=== PATIENT | male | born 1950 | race Caucasian/White ===

== ENCOUNTER 2018-01-14 11:12 | Emergency (ER) | payer MEDICARE, BC ==
[~2018-01-14] VITALS: Ht 175.3 cm; Wt 145.2 kg
[~2018-01-14 11:12] MED LIST: ASPIR 8181 MG PO; BRILINTA90 MG PO; CENTRUM SILVER1 EAC2 PO; DIOVAN 80 MG TA80 M1 PO; IBUPROFEN 800800 M1 PO; KLOR-CON 1010 MEQ PO; LANTUS SUBQ; LASIX 40 MG TAB40 M2 PO; METFORMIN HCL500 MG PO; NEPHROCAPS SOFT1 CAP PO; NEURONTIN 300300 M1 PO; NITROSTAT0.4 MG SUBLING; OMEGA-31000 M1; PLAVIX 75 MG TA75 M1 PO; PRAVACHOL40 MG; TOPROL XL25 MG PO; TRAZODONE HCL100 MG; TYLENOL325 MG PO
[2018-01-14] MEDS ORDERED: ALBUTEROL2.5 MG/31 INH (11:34)
[2018-01-14] MEDS ORDERED: BUMETANIDE2 M1 PO (11:35)
[2018-01-14] MEDS ORDERED: WELLBUTRIN XL150 MG PO (11:36)
[2018-01-14] MEDS ORDERED: ZYRTEC10 M2 PO (11:37)
[2018-01-14] MEDS ORDERED: CARVEDILOL3.125 MG PO (11:37)
[2018-01-14] MEDS ORDERED: SYNTHROID150 MCG PO (11:40)
[2018-01-14] MEDS ORDERED: FOLIC ACID1 MG PO (11:42)
[2018-01-14] MEDS ORDERED: FLONASE 0.05%50 MCG NASAL (11:42)
[2018-01-14 11:43] LABS: ABSOLUTE BASOPHILS 0.1 thou/uL (0.0-0.2); ABSOLUTE EOSINOPHILS 0.1 thou/uL (0.0-0.7); ABSOLUTE LYMPHOCYTES 1.3 thou/uL (0.8-5.3); ABSOLUTE MONOCYTES 0.5 thou/uL (0.0-1.2); ABSOLUTE NEUTROPHILS 5.1 thou/uL (1.6-8.1); BASOPHILS 0.9 %; EOSINOPHILS 1.9 %; HEMATOCRIT 38.6 % (42.0-52.0); HEMOGLOBIN 13.3 gm/dL (14.0-18.0); LYMPHOCYTES 17.9 %; MCH 31.3 pg (26.0-34.0); MCHC 34.6 g/dL (28.0-37.0); MCV 90.6 fL (80.0-100.0); MONOCYTES 6.9 %; MPV 8.4 fl. (7.2-11.1); NUCLEATED RBCS 0 /100WBC; PLATELET COUNT* 139 thou/uL (150-400); POLYS 72.4 %; RBC 4.26 mil/uL (4.50-6.00); RDW-CV 13.7 % (10.5-14.5)
[2018-01-14] MEDS ORDERED: VITAMIN D3400 UNIT PO (11:43)
[2018-01-14] MEDS ORDERED: HUMALOG100 UNIT/2 SUBQ (11:43)
[2018-01-14] MEDS ORDERED: RENA-VITE RX T1 EACH PO (11:43)
[2018-01-14] MEDS ORDERED: METFORMIN HCL500 MG PO (11:44)
[2018-01-14] MEDS ORDERED: XARELTO15 MG PO (11:44)
[2018-01-14] MEDS ORDERED: CENTRUM COMPLE1 EACH PO (11:45)
[2018-01-14] MEDS ORDERED: IBUPROFEN 800800 M1 PO (11:45)
[2018-01-14] MEDS ORDERED: NEPHROCAPS SOFT1 CAP PO (11:45)
[2018-01-14] MEDS ORDERED: LASIX 40 MG TAB40 M2 PO (11:45)
[2018-01-14] MEDS ORDERED: NEURONTIN 300300 M1 PO (11:46)
[2018-01-14] MEDS ORDERED: BRILINTA90 MG PO (11:46)
[2018-01-14] MEDS ORDERED: PRAVACHOL40 MG PO (11:47)
[2018-01-14] MEDS ORDERED: LOPRESSOR50 PO (11:47)
[2018-01-14] MEDS ORDERED: DESYREL300 MG PO (11:47)
[2018-01-14] MEDS ORDERED: LANTUS100 UNIT/M SUBQ (11:48)
[2018-01-14] MEDS ORDERED: AMBIEN 5 MG TABL5 M1 PO (11:48)
[2018-01-14] MEDS ORDERED: DIOVAN 80 MG TA80 M1 PO (11:48)
[2018-01-14 11:53] LABS: ANION GAP 7 mmol/L (7-16); BUN 13 mg/dL (7-18); CHLORIDE 103 mmol/L (98-107); CO2 30 mmol/L (21-32); CREATININE 1.1 mg/dL (0.6-1.3); GLUCOSE 121 mg/dL (70-99); POTASSIUM 4.1 mmol/L (3.5-5.1); SODIUM 140 mmol/L (136-145)
[2018-01-14 11:56] LABS: APTT 28.9 Seconds (25.0-31.3)
[2018-01-14 12:12] LABS: ALBUMIN 3.3 g/dL (3.4-5.0); ALKALINE PHOSPHATASE 80 U/L (46-116); CK-MB MASS 1.4 ng/mL (<0.5-3.6); LIPASE 129 U/L (73-393); NT-PRO BRAIN NAT PEPTIDE 93 pg/mL (<300); SGOT 27 U/L (15-37); SGPT 37 U/L (30-65); TOTAL BILIRUBIN 0.3 mg/dL (<0.1-1.0); TOTAL PROTEIN 7.2 g/dL (6.4-8.2); TROPONIN-I LEVEL <0.06 ng/mL (<0.06)
[2018-01-14 15:22] VITALS: BP 137/68
--- NOTE | 2018-01-14 18:12 | EKG ---
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: klaus : 1950 Requested By: Jasper Courtney Order Number: [id number] MD: Michael Dave Measurements Intervals [place] Rate: 49 P: 20 CO: 174 QRS: 8 QRSD: 98 T: 68 QT: 408 QTc: 369 Interpretive Statements Sinus bradycardia Low voltage, precordial leads Anteroseptal infarct, old Minimal ST depression, anterolateral leads Baseline wander in lead(s) V2 Compared to ECG 07/08/2017 09:24:06 ST (T wave) deviation now present Sinus rhythm no longer present Myocardial infarct finding still present Electronically Signed On 01-14-2018 18:12:25 CDT by Michael Dave [email or web address] <ELECTRONICALLY SIGNED> By: Michael Dave MD, FACC 01/14/18 1812 1119 1119 Michael Dave MD, FACC /EPI
--- NOTE | 2018-01-24 09:04 | CON ---
[address] [address] CONSULTATION Name: BETTINA JACKSON SR Room: [facility]#: [id number] Admission: 01/14/18 Attend Phys: Discharge: 01/14/18 Date of : 50 Report #: [id number] THIS REPORT FOR: //name// CC: Reny Navarro MD [facility] Jasper Courtney TYPE OF REPORT: Cardiology consultation. INDICATION: Chest pain. HISTORY OF PRESENT ILLNESS: The patient is a very pleasant 67-year-old gentleman with history of coronary artery disease. In July of 2017, he had intervention to his mid LAD. He has had previous interventions prior to that. He has preserved left ventricular systolic function. Last night, he had chest discomfort around his back to the left radiating around. The pain started last night, persisted throughout the night and was still present this morning. His troponin and EKG in the Emergency Room are unremarkable. He thinks this pain may be either due to recurrent shingles or musculoskeletal from lifting his 5-month-old grandson. PAST MEDICAL HISTORY: 1. Coronary artery disease. 2. Hypertension. 3. Hyperlipidemia. 4. Obstructive sleep apnea, on CPAP. 5. Osteoarthritis. 6. Peripheral venous insufficiency. 7. History of prostate cancer. 8. Psoriasis. 9. PTSD. 10. Anxiety. 11. Type 2 diabetes mellitus. PAST SURGICAL HISTORY: 1. Cholecystectomy. 2. Percutaneous coronary intervention on multiple occasions. 3. Knee surgery. 4. Shoulder surgery. FAMILY HISTORY: Noncontributory. SOCIAL HISTORY: The patient quit smoking in December of 2016. [place] [address] CONSULTATION Name: BETTINA JACSKON Mars TRISTAN Room: [facility]#: [id number] Admission: 01/14/18 Attend Phys: Discharge: 01/14/18 Date of : 50 Report #: [id number] ALLERGIES: ATORVASTATIN, which causes leg cramps and EFFIENT. CURRENT MEDICATIONS: 1. Furosemide 80 mg daily. 2. Gabapentin 300 mg nightly. 3. Ibuprofen 800 mg q. 6 hours p.r.n. 4. Lantus 100 units nightly. 5. Metformin 500 mg 2 tablets 2 times daily with meals. 6. Toprol-XL 75 mg at bedtime. 7. Multivitamin 1 daily. 8. Fish oil daily. 9. Potassium chloride 10 mEq daily. 10. Pravachol 80 mg daily. 11. Brilinta 90 mg b.i.d. 12. Trazodone 300 mg nightly. 13. Diovan 80 mg daily. 14. Ambien 10 mg nightly. REVIEW OF SYSTEMS: A 14-point review of systems as per HPI, otherwise unremarkable. PHYSICAL EXAMINATION: VITAL SIGNS: Stable. Blood pressure was 136/74, pulse was 50 and regular. GENERAL: This is a pleasant gentleman, moderately obese, in no distress. Mood and affect appropriate. HEENT: The patient is wearing glasses. Extraocular muscles intact. Mucous membranes are moist. NECK: Shows no jugular venous distention. There are no carotid bruits. CHEST: Reveals clear lung alvarado. There are a few raised red bumps over the left back. This does not appear to be obvious shingles, although the patient cautioned to keep an eye on this area. ABDOMEN: Protuberant, soft and nontender. EXTREMITIES: Without edema. SKIN: Warm and dry. RADIOLOGICAL DATA: A 12-lead EKG shows sinus rhythm with no significant ST or T-wave abnormalities. LABORATORY DATA: Initial troponin less than 0.06. IMPRESSION AND RECOMMENDATIONS: 1. Atypical chest pain, question musculoskeletal versus recurrent shingles. I have not given the patient any prescriptions for this. I have asked he and his to keep a close eye on his back in case he does develop any shingles, he is to notify his doctor immediately and started acyclovir immediately. 2. Coronary artery disease, presently stable. Prolong[place] [address] CONSULTATION Name: ALAYNA JACKSONDUYENToby Mars TRISTAN [id number] Admission: 01/14/18 Attend Phys: Discharge: 01/14/18 Date of : 50 Report #: [id number] not represent acute coronary syndrome. Continue medications as outlined above. 3. Hyperlipidemia. Continue atorvastatin at current dose. 4. Hypertension. Blood pressure adequately controlled on current regimen. <ELECTRONICALLY SIGNED> By: Michael Dave MD, FACC 01/24/18 0904 1653 0014Micwill Dave MD, FACC /nt
--- NOTE | 2018-01-24 09:04 | CON ---
[address] [address] CONSULTATION Name: BETTINA JACKSON SR [facility] [id number] Admission: 01/14/18 Attend Phys: Discharge: 01/14/18 Date of : 50 Report #: [id number] THIS REPORT FOR: //name// CC: Reny Courtney INDICATION: Chest pain. HISTORY OF PRESENT ILLNESS: The patient is a very pleasant 67-year-old gentleman with a history of coronary artery disease. In 07/2017, he had percutaneous coronary intervention to his mid LAD. DICTATION ENDS HERE <ELECTRONICALLY SIGNED> By: Michael Dave MD, FACC 01/24/18 0904 1643 2254Micwill Dave MD, FACC /nt
== END 2018-01-14 15:25 | disposition home or self-care (01) ==
LOC: M.ERS 11:12
PROVIDERS: Emergency Medicine
DX: R07.9 Chest pain, unspecified (principal); I10 Essential (primary) hypertension; E11.9 Type 2 diabetes mellitus without complications; I25.10 Atherosclerotic heart disease of native coronary artery without angina pectoris

== ENCOUNTER 2018-09-14 17:05 | Emergency (ER) | payer MEDICARE, BC ==
[~2018-09-14] VITALS: Ht 175.3 cm; Wt 147.4 kg
[~2018-09-14 17:05] MED LIST changes: +ADULT LOW DOSE81 MG PO; +ALBUTEROL2.5 MG/31 INH; +AMBIEN 5 MG TABL5 M1 PO; +ASPIRIN EC81 M1 PO; +B-100 COMPLEX1 EAC1 PO; +BUMETANIDE2 M1 PO; +CARVEDILOL3.125 MG PO; +CENTRUM COMPLE1 EACH PO; +DESYREL300 MG PO; +EFFIENT10 MG PO; +FLONASE 0.05%50 MCG NASAL; +FOLIC ACID1 MG PO; +FUROSEMIDE 40 M40 MG PO; +GABAPENTIN 100100 MG PO; +GLUCOPHAGE XR500 MG PO; +GLUCOPHAGE500 MG PO; +HUMALOG100 UNIT/1 SUBQ; +HUMALOG100 UNIT/2 SUBQ; +LANTUS100 UNIT/M SUBQ; +LOPRESSOR50 PO; +METOPROLOL SUCC25 M1 PO; +MULTI VITAMIN1 EACH PO; +PRAVACHOL40 MG PO; +PRAVACHOL80 MG PO; +RENA-VITE RX T1 EACH PO; +SYNTHROID150 MCG PO; +TRAZODONE 150150 M1 PO; +Trazodone PO; +VITAMIN D3400 UNIT PO; +WELLBUTRIN XL150 MG PO; +XARELTO15 MG PO; +ZYRTEC10 M2 PO
[2018-09-14] MEDS ORDERED: COZAAR 50 MG TA50 MG PO (17:13)
[2018-09-14] MEDS ORDERED: IBUPROFEN 800800 M1 PO (17:27)
[2018-09-14 17:48] LABS: ANION GAP 8 mmol/L (7-16); BUN 13 mg/dL (7-18); CALCIUM 8.8 mg/dL (8.5-10.1); CHLORIDE 99 mmol/L (98-107); CO2 31 mmol/L (21-32); GLUCOSE 150 mg/dL (70-99); POTASSIUM 3.6 mmol/L (3.5-5.1); SODIUM 138 mmol/L (136-145)
[2018-09-14 17:52] LABS: PROTIME 10.3 Seconds (9.20-11.50)
[2018-09-14 17:58] LABS: ABSOLUTE BASOPHILS 0.1 thou/uL (0.0-0.2); ABSOLUTE EOSINOPHILS 0.2 thou/uL (0.0-0.7); ABSOLUTE LYMPHOCYTES 1.6 thou/uL (0.8-5.3); ABSOLUTE MONOCYTES 0.7 thou/uL (0.0-1.2); ABSOLUTE NEUTROPHILS 4.4 thou/uL (1.6-8.1); BASOPHILS 0.7 %; EOSINOPHILS 2.2 %; HEMATOCRIT 40.9 % (42.0-52.0); HEMOGLOBIN 13.7 gm/dL (14.0-18.0); LYMPHOCYTES 23.2 %; MCH 29.8 pg (26.0-34.0); MCHC 33.4 g/dL (28.0-37.0); MCV 89.4 fL (80.0-100.0); MONOCYTES 9.6 %; MPV 8.2 fl. (7.2-11.1); NUCLEATED RBCS 0 /100WBC; PLATELET COUNT* 172 thou/uL (150-400); POLYS 64.3 %; RBC 4.58 mil/uL (4.50-6.00); RDW-CV 14.9 % (10.5-14.5); WBC 6.8 thou/uL (4.0-11.0)
[2018-09-14 17:59] LABS: ALBUMIN 3.3 g/dL (3.4-5.0); ALKALINE PHOSPHATASE 84 U/L (46-116); NT-PRO BRAIN NAT PEPTIDE 83 pg/mL (<300); SGOT 27 U/L (15-37); SGPT 35 U/L (30-65); TOTAL BILIRUBIN 0.2 mg/dL (<0.1-1.0); TOTAL PROTEIN 7.3 g/dL (6.4-8.2); TROPONIN-I LEVEL <0.06 ng/mL (<0.06)
[2018-09-14 20:35] VITALS: BP 136/64
--- NOTE | 2018-09-15 17:25 | EKG ---
[place] [address] ELECTROCARDIOGRAM REPORT Name: BETTINA JACKSON SR Room: [facility]#: [id number] Admission: 09/14/18 Attend Phys: Discharge: 09/14/18 Date of : 50 Report #: [id number] THIS REPORT FOR: //name// 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[place] [facility] [place] 1950 Requested By: Nikki Eddy Order Number: [id number] MD: Michael Dave Measurements Intervals [place] Rate: 66 P: 56 AL: 166 QRS: 7 QRSD: 96 T: 111 QT: 399 QTc: 418 Interpretive Statements Sinus rhythm Anteroseptal infarct, old Borderline repolarization abnormality Compared to ECG 01/14/2018 11:19:45 Sinus bradycardia no longer present ST (T wave) deviation no longer present Myocardial infarct finding still present Electronically Signed On 09-15-2018 17:25:22 AVIATION TECHNICIAN by Michael Dave [email or web address] <ELECTRONICALLY SIGNED> By: Michael Dave MD, FACC 09/15/18 1725 1710 1710 Michael Dave MD, FAC /EPI
== END 2018-09-14 20:37 | disposition home or self-care (01) ==
LOC: M.ERS 17:05
PROVIDERS: Nurse Practitioner
DX: R07.9 Chest pain, unspecified (principal)

== ENCOUNTER 2018-10-20 08:11 | Observation (INO) | payer MEDICARE, BC ==
[~2018-10-20] VITALS: Ht 175.3 cm; Wt 147.4 kg
[2018-10-20] VITALS (10 sets, daily range): BP systolic 114–157; BP diastolic 61–88
[~2018-10-20 08:11] MED LIST changes: +COZAAR 25 MG TA25 M1 PO; +COZAAR 50 MG TA50 MG PO; +FISH OIL 1,001000 M2 PO; +IMDUR 30 MG TAB30 M1 PO; +PLAVIX 75 MG TA75 MG PO
[2018-10-20 08:55] LABS: HEMATOCRIT 39.9 % (42.0-52.0); HEMOGLOBIN 13.6 gm/dL (14.0-18.0); MCHC 34.1 g/dL (28.0-37.0); MCV 90.9 fL (80.0-100.0); MPV 8.8 fl. (7.2-11.1); RBC 4.38 mil/uL (4.50-6.00); RDW-CV 14.6 % (10.5-14.5); WBC 5.7 thou/uL (4.0-11.0)
[2018-10-20 09:00] LABS: PROTIME 10.1 Seconds (9.20-11.50)
[2018-10-20 09:02] LABS: ANION GAP 8 mmol/L (7-16); BUN 12 mg/dL (7-18); CALCIUM 8.8 mg/dL (8.5-10.1); CHLORIDE 102 mmol/L (98-107); CO2 30 mmol/L (21-32); CREATININE 1.1 mg/dL (0.6-1.3); GLUCOSE 86 mg/dL (70-99); POTASSIUM 3.9 mmol/L (3.5-5.1); SODIUM 140 mmol/L (136-145)
[2018-10-20 09:06] LABS: ALBUMIN 3.5 g/dL (3.4-5.0); ALKALINE PHOSPHATASE 72 U/L (46-116); CHOLESTEROL 144 mg/dL (<200); HDL CHOLESTEROL 38 mg/dL (>40); LDL CHOLESTEROL 69 mg/dL (<100); SGOT 25 U/L (15-37); SGPT 33 U/L (30-65); TC:HDL 3.8 Ratio (Not establshd); TOTAL BILIRUBIN 0.4 mg/dL (<0.1-1.0); TOTAL PROTEIN 7.5 g/dL (6.4-8.2); TRIGLYCERIDE 186 mg/dL (<150); VLDL 37 mg/dL (<40)
[2018-10-20 09:09] LABS: SERUM ASSESSMENT Clear
[2018-10-21] VITALS: BP 131/59
--- NOTE | 2018-10-21 03:06 | NUR ---
PATIENT RESTED IN BED, NO ACUTE CHANGES. PATIENT DID NOT SHOW SIGNS OF DISTRESS. PATIENT DID NOT COMPLAIN OF CHEST PAIN. CALL LIGHT WITH IN REACH, HOURLY ROUNDING OBSERVED.
[2018-10-21 04:00] VITALS: BP 106/89
[2018-10-21 04:47] LABS: HEMATOCRIT 36.9 % (42.0-52.0); HEMOGLOBIN 12.5 gm/dL (14.0-18.0); MCH 31.2 pg (26.0-34.0); MCV 91.8 fL (80.0-100.0); MPV 8.5 fl. (7.2-11.1); RBC 4.02 mil/uL (4.50-6.00); RDW-CV 14.5 % (10.5-14.5); WBC 4.5 thou/uL (4.0-11.0)
[2018-10-21 05:17] LABS: ALKALINE PHOSPHATASE 62 U/L (46-116); ANION GAP 8 mmol/L (7-16); BUN 10 mg/dL (7-18); CALCIUM 8.1 mg/dL (8.5-10.1); CHLORIDE 105 mmol/L (98-107); CO2 28 mmol/L (21-32); GLUCOSE 89 mg/dL (70-99); POTASSIUM 3.8 mmol/L (3.5-5.1); SGOT 19 U/L (15-37); SGPT 28 U/L (30-65); SODIUM 141 mmol/L (136-145); TOTAL BILIRUBIN 0.4 mg/dL (<0.1-1.0); TOTAL PROTEIN 5.9 g/dL (6.4-8.2); TROPONIN-I LEVEL <0.06 ng/mL (<0.06)
[2018-10-21 08:00] VITALS: BP 136/53
[2018-10-21 10:42] VITALS: BP 156/67
[2018-10-21] MEDS ORDERED: NITROGLYCERIN0.4 MG SUBLING (11:24)
--- NOTE | 2018-10-21 14:50 | EKG ---
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: : 1950 Requested By: Demar Navarro Order Number: [id number] Lina MD: Demar Navarro Measurements Intervals [place] Rate: 72 P: 47 MO: 187 QRS: 4 QRSD: 96 T: 73 QT: 398 QTc: 436 Interpretive Statements Sinus rhythm Anteroseptal infarct, old Minimal ST depression, lateral leads Baseline wander in lead(s) V6 Compared to ECG 09/14/2018 17:10:57 ST (T wave) deviation now present Myocardial infarct finding still present Electronically Signed On 10-21-2018 14:50:41 DAM WORKER by Demar Navarro [email or web address] <ELECTRONICALLY SIGNED> By: Demar Navarro MD, FACC 10/21/18 1450 2 2 Demar Navarro MD, FACC /EPI
--- NOTE | 2018-10-21 14:52 | EKG ---
[place] [address] ELECTROCARDIOGRAM REPORT Name: ALAYNA JACKSONDUYENToby AKERS Room: [address] M.R.#: [id number] Admission: 10/20/18 Attend Phys: Demar Navarro MD, Discharge: 10/21/18 Date of : 50 Report #: [id number] THIS REPORT FOR: //name// [facility] Test Date: 2018-10-20 Test Time: 13:09:40 Pat Name: BETTINA JACKSON Department: Room: [facility] Gender: M Scrap Wheeler: MIKE : 1950 Requested By: Demar Navarro Order Number: [id number] Lina MD: Demar Navarro Measurements Intervals [place] Rate: 64 P: 59 [place]: 186 QRS: 9 QRSD: 96 T: QT: 412 QTc: 425 Interpretive Statements Sinus rhythm Anterior infarct, old Baseline wander in lead(s) V2 Compared to ECG 09/14/2018 17:10:57 No significant changes Electronically Signed On 10-21-2018 14:52:05 CORE CLEANER by Demar Navarro [email or web address] <ELECTRONICALLY SIGNED> By: Demar Navarro MD, FACC 10/21/18 1452 1309 1309 Demar Navarro MD, [facility] /EPI
--- NOTE | 2018-10-21 15:01 | EKG ---
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: : 1950 Requested By: Demar Navarro Order Number: [id number] Lina MD: Demar Navarro Measurements Intervals [place] Rate: 67 P: 58 ID: 183 QRS: 8 QRSD: 97 T: 65 QT: 405 QTc: 428 Interpretive Statements Sinus rhythm Anterior infarct, old Baseline wander in lead(s) V1 Compared to ECG 09/14/2018 17:10:57 No significant changes Electronically Signed On 10-21-2018 15:00:59 SUPERVISORY INVESTIGATIVE SPECIALIST by Demar Navarro [email or web address] <ELECTRONICALLY SIGNED> By: Demar Navarro MD, FACC 10/21/18 1500 0752 0752 Demar Navarro MD, [facility] /EPI
--- NOTE | 2018-10-21 16:15 | D ---
[address] [address] DISCHARGE SUMMARY Name: ORLANDOMAGDALENESHARITA AKERS Room: [address] Louise Ochoa#: [id number] Admission: 10/20/18 Attend Phys: Demar Navarro MD, Discharge: 10/21/18 Date of : 50 Report #: [id number] THIS REPORT FOR: //name// CC: Demar Chambersandowski FINAL DISCHARGE DIAGNOSES: 1. Abnormal nuclear stress test. 2. Coronary artery disease. 3. Recurrent angina. 4. Status post percutaneous coronary intervention with stent deployment. 5. Hypertension. 6. Peripheral vascular disease. 7. Type 2 diabetes. 8. Hyperlipidemia. 9. Exogenous obesity. PROCEDURES: 10/20/2018 -- left heart catheterization, left ventriculography, selective coronary arteriography, and percutaneous coronary intervention with deployment of 3 drug-eluting stents in the distal LAD and one in the mid LAD. HOSPITAL COURSE: The patient is a very pleasant 68-year-old male with a history of complex coronary artery disease, status post multiple prior percutaneous coronary interventions. He has significant risk factors for coronary artery disease including hypertension, diabetes, hyperlipidemia and significant weight excess. Recently, nuclear stress test was abnormal with inducible anteroapical ischemia. In this context, he underwent cardiac catheterization on 10/20/2018, which revealed 80% mid LAD stenosis with tandem 80% and 90% distal LAD stenoses. There was 40% proximal LAD narrowing. Given these findings, I performed percutaneous coronary intervention, deploying 3 small drug-eluting stents in the distal LAD and one in the mid LAD with 0% residual narrowing at the previously noted sites of 80-90% narrowing. There was ALBERTO 3 flow of the distal vessel and he did well post-procedurally. Troponin was 0.06 the following day. Additional labs revealed sodium 141, potassium 3.8, BUN 10, creatinine 1.0. Hemoglobin 12.5, white blood cell count 4500 with 99,000 platelets. He ambulated in the hallways with good hemostasis at the right radial site of catheterization. DISCHARGE MEDICATIONS: He was discharged home on the following medications: Aspirin 81 mg daily, B complex and C vitamins 1 capsule daily, clopidogrel or Plavix 75 mg daily with a 600 mg chucho-procedural dose given, fish oil 1000 [place] [address] DISCHARGE SUMMARY Name: RENETTABETTINA Room: [address] Louise Ochoa#: [id number] Admission: 10/20/18 Attend Phys: Demar Navarro MD, Discharge: 10/21/18 Date of : 50 Report #: [id number], folic acid with multivitamin 1 tablet daily, furosemide 40 mg daily, gabapentin 300 mg b.i.d., Lantus insulin 80 units at bedtime, Humalog insulin 20 units at breakfast, 16 units at lunch and dinner, Imdur 30 mg daily, losartan 75 mg daily, metformin 500 mg b.i.d. to be resumed on 10/22/2018, metoprolol succinate 75 mg at bedtime, pravastatin 80 mg at bedtime, trazodone 400 mg in the evening, zolpidem 5 mg for sleep, ibuprofen 800 mg every 6 hours as needed for arthritic discomfort. He was also given a script for sublingual nitroglycerin to be utilized on a p.r.n. basis. I will plan to see him in 6-8 weeks in our office. Thus, the patient was discharged to home in stable condition on the aforementioned medications with followup as iterated above. <ELECTRONICALLY SIGNED> By: Demar Navarro MD, FACC 10/21/18 1615 0953 1030Joteo Navarro MD, FACC /nt
--- NOTE | 2018-10-21 18:06 | NUR ---
ORDER RECEIVED TO DISHCARGE PATIENT HOMNE TO SELF CARE. MED REC, MEDICATION EDUATION , STROKE EDUCATION AND NEED FOR FOLLOW UP APPOINTMENTS COVERED AND STAED UNDERSTOOD BY PATIENT. IV AND TELEMETRY PACK REOMVED. HOURLY ROUNDING COMPLETED FOR PATIENT SAFETY. DC TIME OF 12:00, PATIENT WAS ESCORTED BY TECH TO AWAITING CAR WITH SPOUSE PRESENT.
--- NOTE | 2018-10-22 11:48 | CARD ---
[address] [address] CARDIAC CATH REPORT Name: ALAYNA JACKSONDUYENToby DELPHINE Room: [address] Don#: [id number] Admission: 10/20/18 Attend Phys: Demar Navarro MD, Discharge: 10/21/18 Date of : 50 Report #: [id number] THIS REPORT FOR: //name// APPROVED REPORT Study performed: 10/20/2018 09:13:47 Patient Details Patient Status: Out-Patient Room #: The patient is a 68 year-old male Event Personnel Demar Navarro Boat Outboard Engine Mechanic, [place] Estes Childers, James Scrub, Hintermaier, Elena RN cost recorder Performed Left Heart Cath w/or w/o Coronaries [facility] Place w/wo Plasty Single LAD Indication Positive stress test Risk Factors Obesity, Hypercholesterolemia, Hypertension, Diabetes Previous Procedures/Diagnoses Previous PCI Admission/Lab Medications/Medications given during procedure Aspirin, Platelet Aff. Inhib., Angiomax bolus and infusion Procedure Narrative The patient was brought electively to the Cardiac Catheterization Laboratory and was prepped and draped in a sterile manner. The right wrist was infiltrated with 2% Lidocaine subcutaneous anesthesia. A Slender Glidesheath sheath was inserted into the right radial artery. Coronary angiography was performed using coronary diagnostic catheters. The right coronary system was accessed and visualized with a Diagnostic 6Fr JR4 catheter. The left coronary system was accessed and visualized with a Diagnostic 6Fr JL3.5 catheter. The left ventricle was accessed and visualized with a Diagnostic 6Fr angled pigtail catheter. Left ventricular/Aortic Valve gradient assessed via catheter pullback. Left ventriculogram was performed in KAPLAN projection. The patient tolerated the procedure well and there were no complications associated with the [place] [address] CARDIAC CATH REPORT Name: ALAYNA JACKSONDUYENToby [facility] Room: [address]#: [id number] Admission: 10/20/18 Attend Phys: Demar Navarro MD, Discharge: 10/21/18 Date of : 50 Report #: [id number] hematoma. Intraoperative Conscious Sedation Sedation start time: 952 Case end Time: 1107 Fentanyl 100 mcg Versed 2 mg Fluoro Time: 18.4 minutes Dose: DAP [id number] cGycm2 143 mGy Contrast Type and Amount: Visipaque 550 ml Coronary Angiography The patient's coronary anatomy is right dominant. Diagnostic Cath Left Main 0% narrowing LAD 40% mid vessel narrowing followed by a 80% mid to distal LAD stenosis and 90% distal LAD stenosis Circumflex 50% first marginal with 40% second marginal narrowings Right Coronary 60% mid vessel narrowing with total distal occlusion Left Ventriculography The left ventricle is normal in size with normal contractility. The left ventricular ejection fraction is estimated to be 65%. Left ventricular wall motion abnormalities are not present. There is no mitral insufficiency. Hemodynamics The aortic pressure is 117/65 mmHg with a mean of 84 mmHg. The left ventricular pressure is 128/9 mmHg with a mean of mmHg. The left ventricular end diastolic pressure is 23 mmHg. There was no gradient across the aortic valve upon pullback. PCI Technique Lesion Percutaneous coronary intervention was performed on the distal left anterior descending artery segment. The lesion stenosis prior to intervention was 90% with ALBERTO 3 flow. A 6Fr XB 3.5 Guide Catheter was used to engage the ostium. A play140 180 Interventional Guidewire was used to cross the lesion. BALLOON DILATION A Balloon catheter NC Trek RX 2.0 X 12 was inserted and inflated up to 15.00atm for 11seconds. Additional Inflation: 12.00atm [place] 12[place]. [place] [address] CARDIAC CATH REPORT Name: ALAYNA JACKSONDUYENToby DELPHINE Room: [address]#: [id number] Admission: 10/20/18 Attend Phys: Demar Navarro MD, Discharge: 10/21/18 Date of : 50 Report #: [id number] STENT DEPLOYMENT A drug-eluting stent Yuriy RX Stent 2.0X15mm was inserted and inflated up to 10.00atm for 9seconds. A drug-eluting stent Yuriy RX stent 2.25X8 was inserted and inflated up to 10:00atm for 7 seconds. A drug-eluting sent [place] 2.25X8 was inserted and inflated up to 12:00atm for 8 seconds. Final angiography reveals 0 % stenosis with ALBERTO 0 flow. PCI Technique Lesion 2 Percutaneous Coronary Intervention was performed on the mid left anterior descending artery segment. The lesion stenosis prior to intervention was 80% with ALBERTO 3 flow. Stent Deployment A drug-eluting stent [place] RX Stent 2.5X22mm was inserted and inflated up to 10.00atm for 8seconds. Additional Inflation: 11.00atm for 10seconds. Post Stent Deployment Balloon Dilation A Balloon catheter NC Trek RX 2.5 X 12 was inserted and inflated up to 15.00atm for 7seconds. Additional Inflation: 12.00atm for 7seconds. Additional Inflation: 12.00atm for 8seconds. Final angiography reveals 0 % stenosis with ALBERTO 3 flow. Conclusion #1 significant coronary artery disease characterized by the following: A 40% mid LAD narrowing followed by 80% mid to distal LAD stenosis and 90% distal LAD stenosis B 40% narrowings of the first and second marginal branch of the nondominant circumflex C dominant right coronary with 60% mid vessel narrowing and 100% distal occlusion #2 normal left ventricular systolic function, estimated ejection fraction being 65% #3 successful percutaneous coronary intervention with deployment drug-eluting stents at the sites of 80% mid and 90% [place] [address] CARDIAC CATH REPORT Name: BETTINA JACKSON SR Room: [address] Louise Ochoa#: [id number] Admission: 10/20/18 Attend Phys: Demar Navarro MD, Discharge: 10/21/18 Date of : 50 Report #: [id number] stenosis with 0% residual narrowing at both sites following stent deployment and ALBERTO-3 flow the distal vessel Recommendations Daily ASA with Plavix for at least one year Cardiac Risk Reduction Program Aggressive Medical Therapy Medications Administered Aspirin (any) Clopidogrel Diagnostic Cath Approved by: Demar Navarro MD Date/Time: 10/22/2018 11:46:43 <ELECTRONICALLY SIGNED> By: Demar Navarro MD, [facility] 10/22/18 1148 1148 1148Demar Navarro MD, FACC /INF
== END 2018-10-21 12:27 | disposition home or self-care (01) ==
LOC: M.CL 08:11 → M.TBA-CV 11:28 → M.2W 14:04
PROVIDERS: ADMIT Internal Medicine
DX: I25.119 Atherosclerotic heart disease of native coronary artery with unspecified angina pectoris (principal); I10 Essential (primary) hypertension; E11.9 Type 2 diabetes mellitus without complications; E78.5 Hyperlipidemia, unspecified; E66.09 Other obesity due to excess calories; I73.9 Peripheral vascular disease, unspecified

== ENCOUNTER 2019-12-20 12:10 | Observation (INO) | payer MEDICARE, BC ==
[~2019-12-20] VITALS: Ht 172.7 cm; Wt 157.4 kg
[2019-12-20] VITALS (12 sets, daily range): BP systolic 104–1126; BP diastolic 56–77
[~2019-12-20 12:10] MED LIST changes: -GLUCOPHAGE XR500 MG PO; -METOPROLOL SUCC25 M1 PO; +NITROGLYCERIN0.4 MG SUBLING; -PRAVACHOL80 MG PO; +TOPROL XL50 MG PO
[2019-12-20 13:35] LABS: PROTIME 10.7 Seconds (9.20-11.50)
[2019-12-20 13:36] LABS: ANION GAP 5 mmol/L (7-16); BUN 14 mg/dL (7-18); CALCIUM 8.7 mg/dL (8.5-10.1); CHLORIDE 101 mmol/L (98-107); CO2 33 mmol/L (21-32); GLUCOSE 157 mg/dL (70-99); POTASSIUM 4.5 mmol/L (3.5-5.1); SODIUM 139 mmol/L (136-145)
[2019-12-20 13:41] LABS: ALBUMIN 3.3 g/dL (3.4-5.0); ALKALINE PHOSPHATASE 80 U/L (46-116); CHOLESTEROL 136 mg/dL (<200); HDL CHOLESTEROL 39 mg/dL (>40); HEMATOCRIT 38.7 % (42.0-52.0); HEMOGLOBIN 13.5 gm/dL (14.0-18.0); LDL CHOLESTEROL 62 mg/dL (<100); MCHC 34.9 g/dL (28.0-37.0); MCV 91.6 fL (80.0-100.0); MPV 8.9 fl. (7.2-11.1); RBC 4.23 mil/uL (4.50-6.00); RDW-CV 13.3 % (10.5-14.5); SGOT 43 U/L (15-37); SGPT 51 U/L (30-65); TC:HDL 3.5 Ratio (Not establshd); TOTAL BILIRUBIN 0.4 mg/dL (<0.1-1.0); TOTAL PROTEIN 7.2 g/dL (6.4-8.2); TRIGLYCERIDE 176 mg/dL (<150); VLDL 35 mg/dL (<40); WBC 7.3 thou/uL (4.0-11.0)
[2019-12-20 13:42] LABS: SERUM ASSESSMENT Clear
--- NOTE | 2019-12-20 18:24 | NUR ---
RECEIEIVIED REPORT FROM AURY RN IN TRACTOR DISTRIBUTOR POST CATH AT 1700-PT REPORTED TO HAVE HAD 2 STENTS PLACED TO LAD VIA ACCESS RIGHT GROIN- PT ARRIVED TO UNIT VIA BED AT 1715- VS- 97.3 18 123/77 68 95% ON RA- RIGHT GROIN SIGHT NOTED TO BE C/D/I WITH CLEAN GAUZE/TRANSPARENT DRESSING IN PLACE WITH NO HEMATOMA- INSTRUCTION GIVEN FOR RLE IMMOBILIZATION- VS PER PROTOCOL IN PLACE WITH GROIN CHESKS, MOST REPORTED TO HAVE BEEN COMPLETED PRIOR TO TRANSFER- PT NOTED TO BE A&O X4- CONT OF BOWEL, LEON IN PLACE D/D CLEAR EDWIN URINE- BED REST IN PLACE INDICATED TILL 10PM- IV NOTED TO LEFT FA INTACT, IVF INFUSSING PRESCIBED- 2+ BLE EDEMA NOTED WITH DISCOLORATION- PT DENIES ANY C/O PAIN/DISCOMFORT AT THIS TIME- REPORTS TO HAVE CARLOS HEARING AIDES, HOWEVER LEFT AT HOME- PT DENIES ANY C/O PAIN/DISCOMFORT AT THIS TIME- AT SIDE- GOOD PO INTAKE NOTED WITH DINNER- CALL LIGHT AND PERSONAL BELONGINGS WITH IN REACH- PT MAKES NEEDS KNOWN- ALL NEEDS MET AT THIS TIME-[facility]
[2019-12-21] VITALS: BP 111/51; BP 142/68
[2019-12-21 04:00] VITALS: BP 121/37
[2019-12-21 04:16] LABS: HEMATOCRIT 36.9 % (42.0-52.0); MCH 32.4 pg (26.0-34.0); MCHC 35.2 g/dL (28.0-37.0); MCV 92.1 fL (80.0-100.0); MPV 8.6 fl. (7.2-11.1); RBC 4.01 mil/uL (4.50-6.00); RDW-CV 13.7 % (10.5-14.5); WBC 5.3 thou/uL (4.0-11.0)
[2019-12-21 04:34] VITALS: BP 114/53
[2019-12-21 04:43] LABS: POTASSIUM 3.7 mmol/L (3.5-5.1); TOTAL BILIRUBIN 0.3 mg/dL (<0.1-1.0); TOTAL PROTEIN 6.6 g/dL (6.4-8.2); TROPONIN-I LEVEL 0.47 ng/mL (<0.06)
[2019-12-21 08:00] VITALS: BP 145/67
--- NOTE | 2019-12-21 11:15 | EKG ---
[place] [address] ELECTROCARDIOGRAM REPORT Name: ALAYNA JACKSONDUYENToby AKERS Room: [address] M.R.#: [id number] Admission: 12/20/19 Attend Phys: Edwin Logan Discharge: Date of : 50 Date of Service: 12/20/19 1323 Report #: [id number] THIS REPORT FOR: //name// [facility] Test Date: 2019-12-20 Test Time: 13:23:34 Pat Name: BETTINA JACKSON Department: Room: [facility] Gender: M Housecleaner: WILL : 1950 Requested By: Demar Navarro Order Number: [id number] MD: Michael Dave Measurements Intervals [place] Rate: 72 P: 53 DE: 191 QRS: 5 QRSD: 90 T: 74 QT: 395 QTc: 433 Interpretive Statements Sinus rhythm Ventricular premature complex Low voltage, precordial leads Anteroseptal infarct, old Compared to ECG 10/21/2018 07:52:55 Ventricular premature complex(es) now present Low QRS voltage now present Myocardial infarct finding still present Electronically Signed On 12-21-2019 11:14:28 RODBUSTER by Michael Dave [email or web address] <ELECTRONICALLY SIGNED> By: Michael Dave MD, FAC 12/21/19 1114 1323 1323 Michael Dave MD, [facility] /EPI
--- NOTE | 2019-12-21 11:17 | EKG ---
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: : 1950 Requested By: Demar Navarro Order Number: [id number] Reading MD: Michael Dave Measurements Intervals [place] Rate: 68 P: 53 MS: 196 QRS: 17 QRSD: 95 T: QT: 406 QTc: 432 Interpretive Statements Sinus rhythm Premature ventricular complex Low voltage, precordial leads Anteroseptal infarct, old Nonspecific T abnormalities, lateral leads Baseline wander in lead(s) II,III,aVF Compared to ECG 10/21/2018 07:52:55 Low QRS voltage now present T-wave abnormality now present Myocardial infarct finding still present Electronically Signed On 12-21-2019 11:16:53 FINANCE EFFECTIVENESS MANAGER by Michael Dave [email or web address] <ELECTRONICALLY SIGNED> By: Michael Dave MD, [facility] 12/21/19 1116 1648 1648 Michael Dave MD, [facility] /EPI
--- NOTE | 2019-12-21 11:22 | EKG ---
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: : 1950 Requested By: Demar Navarro Order Number: [id number] Reading MD: Michael Dave Measurements Intervals [place] Rate: 64 P: 51 [place]: 181 QRS: 14 QRSD: 98 T: 6 QT: 414 QTc: 427 Interpretive Statements Sinus rhythm Low voltage, precordial leads Anteroseptal infarct, old Borderline repolarization abnormality Baseline wander in lead(s) II,III,aVR,aVL,aVF,V4 Compared to ECG 10/21/2018 07:52:55 Low QRS voltage now present Myocardial infarct finding still present review Electronically Signed On 12-21-2019 11:21:05 NET SOFTWARE ARCHITECT by Michael Dave [email or web address] <ELECTRONICALLY SIGNED> By: Michael Dave MD, [facility] 12/21/19 1121 8 8 Michael Dave MD, [facility] /EPI
[2019-12-21] MEDS ORDERED: ASA81BEC PO (13:43)
[2019-12-21] MEDS ORDERED: NEPHRO-VITE RX1 TA1 PO (13:45)
[2019-12-21] MEDS ORDERED: HUMALOG100 UNIT/1 SUBQ (14:19)
[2019-12-21 14:41] VITALS: BP 139/70
--- NOTE | 2019-12-21 16:16 | NUR ---
RECEIVED REPORT FROM MARTA MARQUEZ. ASSUMED CARE OF PT AROUND 0730. PT A&O X4. AM ASSESSMENT AND VITALS COMPLETED CHARTED. CYLINDER STEAMER IN PLACE TRACING SR WITH OCCASIONAL FIRST DEGREE. PT TOLERATING DIET. DENIES PAIN OR DISCOMFORT. PT REPORTED SLIGHT HEMATURIA THIS AM THAT IMPROVED SHIFT PROGRESSED. IV INFILTRATED AND WAS REMOVED. RIGHT GROIN CATH SITE CDI AND FREE FROM HEMATOMA. DR PHILIPPE ROUNDED - DISCHARGE ORDERS RECEIVED. DISCHARGE COMPLETED DOCUMENTED. DISCHARGE SUMMARY GONE OVER WITH PT, PT COMMUNICATES UNDERSTANDING. CYLINDER STEAMER REMOVED. ALL BELONGINGS GATHERED AND LEAVING WITH PT. PT LEFT UNIT IN WC WITH NURSING STAFF. PT LEFT HOSPITAL IN CAR WITH SPOUSE.
--- NOTE | 2019-12-22 11:02 | CARD ---
[address] [address] CARDIAC CATH REPORT Name: BETTINA JACKSON Room: [address]RShakeel#: [id number] Admission: 12/20/19 Attend Phys: Demar Navarro MD, Discharge: 12/21/19 Date of : 50 Report #: [id number] THIS REPORT FOR: //name// cc: Kallie Castro MD, Molly MD ~ THIS REPORT FOR: //name// APPROVED REPORT Study performed: 12/20/2019 14:12:03 Patient Details Patient Status: Out-Patient Room #: The patient is a 69 year-old male Event Personnel Jonel Webster RTR Monitor, Faviola Ortiz RN RN, Zoran Ji, Demar Navarro Legislators Procedures Performed Right femoral artery access, Left Heart Cath w/or w/o Coronaries, atherotomy/atherectomy and ADOLPH Place w/wo Plasty Single LAD, Hemostasis w/ Mynx Indication Dyspnea, Positive stress test Risk Factors Obesity, Hypercholesterolemia, Hypertension, Diabetes Previous Procedures/Diagnoses Previous PCI Admission/Lab Medications/Medications given during procedure Lidocaine Subcut 20 ml, Midazolam (Versed) IV 2 mg, Fentanyl IV 25 mcg, Midazolam (Versed) IV 1 mg, Angiomax IV 23 ml, Angiomax IV 54 mg per kg, Plavix PO 600 mg, Aspirin PO 162 mg Procedure Narrative The patient was brought electively to the Cardiac Catheterization Laboratory and was prepped and draped in a sterile manner. The right femoral was infiltrated with 2% Lidocaine subcutaneous anesthesia. A [place] 6 FR sheath was inserted into the right femoral artery. Coronary angiography was performed [place] [address] CARDIAC CATH REPORT Name: BETTINA JACKSON Room: [address]#: [id number] Admission: 12/20/19 Attend Phys: Demar Navarro MD, Discharge: 12/21/19 Date of : 50 Report #: [id number] catheters. The right coronary system was accessed and visualized with a Diagnostic 3DRC 6Fr catheter. The left coronary system was accessed and visualized with a Diagnostic JL4 6Fr catheter. The left ventricle was accessed and visualized with a Diagnostic [address]. 6Fr catheter. Left ventriculogram was performed in KAPLAN projection. Pre-demployment femoral angiogram was performed . Closure device was deployed with a 6 Fr Mynx. The patient tolerated the procedure well and there were no complications associated with the procedure. There was no hematoma. Intraoperative Conscious Sedation Sedation start time: 1449 Case end Time: 1604 Fentanyl 75 mcg Versed 4 mg Fluoro Time: 21.2 minutes Dose: DAP 399127 cGycm2 4678.55 mGy Contrast Type and Amount: Visipaque 385 ml Diagnostic Cath Left Main 10% distal left main coronary narrowing LAD 80% tubular stenosis of the midportion of the LAD with 70% tubular second diagonal narrowing Circumflex 60% tubular narrowing of the first marginal branch with 40% ostial second marginal narrowing Right Coronary Dominant vessel with 80% mid vessel narrowing and 100% distal occlusion Left Ventriculography The left ventricle is normal in size with normal contractility. The left ventricular ejection fraction is estimated to be 60%. Left ventricular wall motion abnormalities are not present. There is no mitral insufficiency. Hemodynamics The aortic pressure is 122/63 mmHg with a mean of 87 mmHg. The left ventricular pressure is 134/10 mmHg with a mean of mmHg. The left ventricular end diastolic pressure is 19 mmHg. PCI Technique Lesion Patient was preloaded with Angiomax IV 23 ml. Percutaneous coronary intervention was performed on the mid left anterior descending artery segment. The lesion stenosis prior to intervention was 80% with ALBERTO 3 flow. A 6F XB LAD 3.5 Guide Catheter was used to engage the Left ostium. A IG: ProwaterFlex 180CM Interventional Guidewire was used [place] [address] CARDIAC CATH REPORT Name: BETTINA JACKSON [facility] Room: [address] Louise M.RShakeel#: [id number] Admission: 12/20/19 Attend Phys: Demar Navarro MD, Discharge: 12/21/19 Date of : 50 Report #: [id number] BALLOON DILATION A Balloon catheter NC Trek RX 2.75 X 12 was inserted and inflated up to 20.00atm for 16seconds. Additional Inflation: 20.00atm for 8seconds. Additional Inflation: 20.00atm for 7seconds. Additional Inflation: 20.00 pepe for 9 seconds A Cutting Balloon Angiosculpt PTCA 3.0x10mm was inserted and inflated up to 10 pepe for 13 seconds, additional inflation: 12 pepe for 12 seconds, additional inflation: 12 pepe for 15 seconds, additional inflation: 12 pepe for 13 seconds. STENT DEPLOYMENT A drug-eluting stent Xience Luci 3.0X28mm, 2.75x12 was inserted and inflated up to 15.00atm for 10seconds. Additional Inflation: 18.00atm for 10seconds. Additional Inflation: 20.00atm for 8seconds. An additonal Drug Eluting Stent Xience Luci 2.35p90oj was inserted and inflated up to 16 pepe for 7 seconds. Additional inflation: 18 pepe for 10 seconds, additional inflation of 20 pepe for 7 seconds. POST STENT DEPLOYMENT BALLOON DILATION A Balloon catheter NC Trek RX 3.0 X 8 was inserted and inflated up to 17.00atm for 10seconds. Additional Inflation: 20.00atm for 9seconds. Additional Inflation: 20.00atm for 5seconds. Additional Inflation: 22 pepe for 11 seconds, Additional Inflation: 22 pepe for 4 seconds. Final angiography reveals 10 % stenosis with ALBERTO 3 flow. Conclusion #1 significant coronary artery disease characterized by the following: A 10% distal left main coronary artery narrowing B 80% tubular mid LAD stenosis with 70% tubular second diagonal narrowing C 60% tubular narrowing of the first marginal branch with 40% ostial second marginal narrowing in the circumflex D dominant right coronary artery with 80% mid vessel stenosis 100% distal occlusion #2 normal left ventricular systolic function at rest with ejection fraction being 60% [address] [address] CARDIAC CATH REPORT Name: BETTINA JACKSON Room: [address] [place] Ochoa#: [id number] Admission: 12/20/19 Attend Phys: Demar Navarro MD, Discharge: 12/21/19 Date of : 50 Report #: [id number] #3 moderate elevation of left ventricular end-diastolic pressure at rest #4 successful atherotomy/atherectomy with deployment of sequential drug-eluting stents in the mid LAD with 10% residual narrowing and ALBERTO 3 flow to the distal vessel Recommendations Daily ASA with Plavix for at least one year Cardiac Risk Reduction Program Medications Administered Aspirin (any) Clopidogrel Diagnostic Cath Approved by: Demar Navarro MD Date/Time: 12/22/2019 10:58:21 <ELECTRONICALLY SIGNED> By: Demar Navarro MD, FAC 12/22/191100 00 00Demar Navarro MD, FACC /INF
--- NOTE | 2019-12-22 11:31 | D ---
[address] [address] DISCHARGE SUMMARY Name: ALAYNA JACKSONDUYENToby AKERS Room: [address] M.RShakeel#: [id number] Admission: 12/20/19 Attend Phys: Demar Navarro MD, Discharge: 12/21/19 Date of : 50 Report #: [id number] THIS REPORT FOR: //name// cc: Kallie Castro MD, Molly MD ~ THIS REPORT FOR: //name// CC: Demar Castro DATE OF SERVICE: 12/21/2019 FINAL DISCHARGE DIAGNOSES: 1. Abnormal nuclear stress test. 2. Coronary artery disease. 3. Status post percutaneous coronary intervention of the left anterior descending. 4. Hypertension. 5. Type 2 diabetes. 6. Hyperlipidemia. 7. Exogenous obesity. 8. Peripheral vascular disease. 9. Peripheral venous insufficiency. PROCEDURES: 12/20/2019 -- left heart catheterization, left ventriculography, selective coronary arteriography and atherectomy with stenting of the mid LAD. HOSPITAL COURSE: The patient is a pleasant 69-year-old male with complex coronary artery disease and multiple risk factors for coronary artery disease include hypertension, diabetes, hyperlipidemia and significant exogenous obesity. Recently, he has noted increased dyspnea on exertion and nuclear stress test revealed inducible anteroapical ischemia. In this context, I performed cardiac catheterization on 12/20/2019. That study revealed a chronic total occlusion of the distal right coronary artery, which is unchanged. He had 80% mid LAD stenosis, different from the prior cineangiogram with widely patent distal LAD stents. I performed arthrotomy/atherectomy with stenting of the mid LAD with 10% residual narrowing and ALBERTO 3 flow of the distal vessel. Troponin corina inconsequentially to 0.47. Sodium was 143, potassium 3.7, BUN 12, creatinine 1.0. Hemoglobin 13.0, white blood cell count 5300 with 99,000 platelets. He ambulated in the hallways without difficulty with good hemostasis at the right femoral site of catheterization. DISCHARGE MEDICATIONS: The patient [place] [address] DISCHARGE SUMMARY Name: [facility]INA [facility] Room: [address] [place] Ochoa#: [id number] Admission: 12/20/19 Attend Phys: Demar Navarro MD, Discharge: 12/21/19 Date of : 50 Report #: [id number] medications: Aspirin 81 mg daily, B complex vitamins 1 tablet daily, clopidogrel 75 mg daily with a 600 mg chucho-procedural dose, fish oil 1200 mg daily, folic acid with iron one tablet daily, furosemide 40 mg daily, gabapentin 300 mg in the evening, Lantus insulin 95 units subcutaneously at bedtime, Humalog insulin 15-20 units subcutaneously a.c. as needed, isosorbide mononitrate 30 mg daily, losartan 75 mg daily, metformin XR 500 mg b.i.d. to be resumed 12/22/2019, metoprolol succinate 50 mg daily, pravastatin 80 mg at bedtime, trazodone or Desyrel 400 mg in the evening, ibuprofen 800 mg q. 8 hours p.r.n., p.r.n. sublingual nitroglycerin and zolpidem 10 mg as needed for sleep. The patient is scheduled to return to see me in the office on 01/19/2020 at 1300 at [facility]. Therefore, he is discharged to home in stable condition on the aforementioned medications with followup as described above. <ELECTRONICALLY SIGNED> By: Demar Navarro MD, FACC 12/22/19 1131 1311 1425Demar Navarro MD, FACC /nt
== END 2019-12-21 15:30 | disposition home or self-care (01) ==
LOC: M.CL 12:10 → M.2W 16:16 → M.TBA-CV 16:16 → M.2W 17:25
PROVIDERS: ADMIT Internal Medicine
DX: I25.10 Atherosclerotic heart disease of native coronary artery without angina pectoris (principal); I10 Essential (primary) hypertension; E66.09 Other obesity due to excess calories; E78.5 Hyperlipidemia, unspecified; Z98.61 Coronary angioplasty status; E11.51 Type 2 diabetes mellitus with diabetic peripheral angiopathy without gangrene

== ENCOUNTER 2020-01-15 14:53 | Inpatient (IN) | payer MEDICARE, BC ==
[~2020-01-15] VITALS: Ht 175.3 cm; Wt 148.8 kg
[~2020-01-15 14:53] MED LIST changes: +ASA81BEC PO; +NEPHRO-VITE RX1 TA1 PO
[2020-01-15 14:59] VITALS: BP 142/66
[2020-01-15] MEDS ORDERED: VITAMIN B COMP1 EACH PO (15:17)
[2020-01-15 15:55] LABS: ABSOLUTE BASOPHILS 0.1 thou/uL (0.0-0.2); ABSOLUTE EOSINOPHILS 0.1 thou/uL (0.0-0.7); ABSOLUTE LYMPHOCYTES 0.9 thou/uL (0.8-5.3); ABSOLUTE MONOCYTES 0.7 thou/uL (0.0-1.2); ABSOLUTE NEUTROPHILS 6.1 thou/uL (1.6-8.1); BASOPHILS 0.7 %; EOSINOPHILS 1.5 %; HEMATOCRIT 39.5 % (42.0-52.0); HEMOGLOBIN 13.8 gm/dL (14.0-18.0); LYMPHOCYTES 11.6 %; MCH 31.9 pg (26.0-34.0); MCV 91.2 fL (80.0-100.0); MONOCYTES 9.2 %; MPV 8.7 fl. (7.2-11.1); NUCLEATED RBCS 0 /100WBC; PLATELET COUNT* 122 thou/uL (150-400); RBC 4.34 mil/uL (4.50-6.00); RDW-CV 13.6 % (10.5-14.5); WBC 7.9 thou/uL (4.0-11.0)
[2020-01-15 16:00] LABS: PROTIME 10.4 Seconds (9.20-11.50)
[2020-01-15 16:02] LABS: CALCIUM 8.7 mg/dL (8.5-10.1); POTASSIUM 4.1 mmol/L (3.5-5.1)
[2020-01-15 16:12] LABS: ALBUMIN 3.2 g/dL (3.4-5.0); TOTAL BILIRUBIN 0.4 mg/dL (<0.1-1.0); TOTAL PROTEIN 7.3 g/dL (6.4-8.2)
[2020-01-15 18:06] VITALS: BP 132/77
[2020-01-15 18:30] VITALS: BP 161/86
[2020-01-15 20:00] VITALS: BP 166/71
[2020-01-15 23:30] VITALS: BP 145/70
[2020-01-15 23:40] VITALS: BP 123/55
[2020-01-16] VITALS (7 sets, daily range): BP systolic 122–150; BP diastolic 41–71
[2020-01-16 04:23] LABS: CALCIUM 8.2 mg/dL (8.5-10.1); MAGNESIUM 1.8 mg/dL (1.8-2.4); POTASSIUM 3.9 mmol/L (3.5-5.1)
--- NOTE | 2020-01-16 08:08 | NUR ---
PT CARE ASSUMED AT 1930. SAT MAINTAINED IN RA. PT HAD RUN OF VTA, PT ASYMPTOMATIC, CARDIAC CARE NURSE INFORMED, ORDER RECIEVED FOR BOLUS AMIODARONE AND GIVEN. DENIES SOB. CALL LIGHT WITHIN REACH AND BED IN LOW POSITION. HOURLY ROUNDING DONE FOR PT SAFETY.
--- NOTE | 2020-01-16 11:31 | H ---
[place] [address] HISTORY AND PHYSICAL Name: ORLANDOMAGDALENESHARITA AKERS Room: [address] IN [place].#: [id number] Admission: 01/15/20 Attend Phys: Jaren Castellon MD, F Discharge: Date of : 50 Report #: [id number] THIS REPORT FOR: //name// cc: Kallie Castro MD, Molly MD ~ THIS REPORT FOR: //name// CC: Jaren Castro MD DATE OF SERVICE: 01/15/2020 CARDIOLOGY HISTORY AND PHYSICAL HISTORY OF PRESENT ILLNESS: The patient is a 69-year-old white male who I was asked to see in the hospital today after he was noted to have a wide complex tachycardia. The patient has an extensive past medical history. He apparently had his first stent placed back in 2004 at [facility]. He states that time, he had a stress test because of risk factors that was abnormal. He has had a total of at least 11 stents since that time including stents in 2013, 2015, 2017, and 2019. He actually had an abnormal stress test and Dr. Navarro placed another stent here at [facility] in 12/20/2019. Heart catheterization at that time showed an ejection fraction of 50%. There were many stents in the right coronary artery with about an 80% mid right coronary artery noted. Stents in the circumflex had no restenosis. The stent in the LAD did have a 60% restenosis and there was a medium sized diagonal branch had 90% ostial stenosis. Dr. Navarro then placed a new stent in the mid LAD and the patient was continued on aspirin and Plavix. The patient did complain of occasional flutter in his chest and he was given a compliance monitor to wear. Over the weekend, the monitor showed episodes of a wide complex tachycardia at 200 beats per minute consistent with ventricular tachycardia lasting several seconds. There were episodes of fusion beats suggesting SVT with aberrancy. The patient did note some lightheadedness and palpitations over the weekend. Today, he noticed some shortness of breath and he went to see his primary care physician because of hip pain. Because of the wide complex tachycardia, he was told to come to the hospital and be admitted. He denied any fever, increasing edema, orthopnea, chest pain. PAST MEDICAL HISTORY: Otherwise significant for cholecystectomy, knee surgery, shoulder surgery, elbow surgery, radiation therapy for prostate cancer, sleep apnea, uses CPAP. He has hypertension, diabetes, and hyperlipidemia. MEDICATIONS: Include Plavix, Lasix every day, Neurontin, insulin, Imdur, losartan, metformin, metoprolol, pravastatin, Desyrel, [place] [address] HISTORY AND PHYSICAL Name: ALAYNA JACKSONDUYENToby DELPHINE Room: [address] IN [facility].#: [id number] Admission: 01/15/20 Attend Phys: Jaren Castellon MD, F Discharge: Date of : 50 Report #: [id number] ALLERGIES: HE HAS PREVIOUS INTOLERANCE TO LIPITOR AND EFFIENT. FAMILY HISTORY: Negative for heart disease. SOCIAL HISTORY: He is . 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 Quit smoking 2 years ago. No alcohol abuse. REVIEW OF SYSTEMS: No history of stroke. He has a previous history of asthma, uses a nebulizer. He has had a previous history of hepatitis. No kidney disease. He does have psoriasis. He sees a psychiatrist for post-traumatic stress disorder. PHYSICAL EXAMINATION: GENERAL: Revealed an overweight elderly male, appeared in no acute distress. VITAL SIGNS: Blood pressure 140/60, pulse 70. HEENT: He was anicteric. Conjunctivae pink. Mucous membranes were moist. NECK: Veins difficult to assess due to obesity. No carotid bruits. CHEST: Clear to auscultation without wheezes. CARDIOVASCULAR: Regular rate and rhythm. ABDOMEN: Obese. EXTREMITIES: Had trace edema. Dorsalis pedis pulse cannot be palpated. SKIN: Cool and dry. NEUROLOGIC: Nonfocal. RADIOLOGICAL DATA: His ECG on admission showed a sinus rhythm, septal Q-waves, nonspecific ST and T-wave change. LABORATORY WORK: Sodium 143, potassium 3.7, creatinine 1.0, glucose 86. Liver function studies were normal. Magnesium 2.0 last year. Troponin 0.47. His February cholesterol 136, triglyceride 176, HDL 39, LDL 62. Hematocrit 36.9. IMPRESSION AND RECOMMENDATIONS: 1. Wide complex tachycardia. I would recommend starting the amiodarone. 2. Multiple stents. No significant angina. Continue aspirin and Plavix. 3. Hypertension. The patient is on ARB and beta huyen. 4. Hyperlipidemia. The patient is on a statin drug. 5. Diabetes. 6. Sleep apnea. The patient uses CPAP. 7. Morbid obesity. 8. History of prostate cancer. 9. Venous stasis. The patient is on diuretics. [address] [address] HISTORY AND PHYSICAL Name: BETTINA JACKSON Room: [address]#: [id number] Admission: 01/15/20 Attend Phys: Jaren Castellon MD, F Discharge: Date of : 50 Report #: [id number] 10. Psoriasis. 11. Posttraumatic stress disorder. The patient sees a psychiatrist. <ELECTRONICALLY SIGNED> By: Jaren Castellon MD, FACC 01/16/20 1131 1543 2056David Kole Castellon MD, FACC /nt
--- NOTE | 2020-01-16 12:38 | EKG ---
[place] [address] ELECTROCARDIOGRAM REPORT Name: ALAYNA JACKSONDUYENToby AKERS Room: [address] ADM IN [facility]#: [id number] Admission: 01/15/20 Attend Phys: Jaren Castellon MD Discharge: Date of : 50 Date of Service: 01/15/20 1519 Report #: [id number] THIS REPORT FOR: //name// 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 Assistant: : 1950 Requested By: Sai Samaniego Order Number: [id number] MD: Jaren Castellon Measurements Intervals [place] Rate: 79 P: 58 [place]: 175 QRS: 7 QRSD: 89 T: 127 QT: 362 QTc: 416 Interpretive Statements Sinus rhythm Anteroseptal infarct, old Nonspecific T abnormalities, lateral leads Baseline wander in lead(s) II Compared to ECG 12/21/2019 08:29:52 Myocardial infarct finding still present Electronically Signed On 01-16-2020 12:37:25 CDT by Jaren Castellon [email or web address] <ELECTRONICALLY SIGNED> By: Jaren Castellon MD, FACC 01/16/20 1237 1519 1519 Jaren Castellon MD, [facility] /EPI
--- NOTE | 2020-01-16 12:41 | NUR ---
PT GIVEN AMIODARONE BOLUS. PT TOLERATED WELL
--- NOTE | 2020-01-16 12:45 | EKG ---
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: [facility] : 1950 Requested By: Jaren Castellon Order Number: [id number] Lina MD: Jaren Castellon Measurements Intervals [place] Rate: 79 P: 46 MD: 181 QRS: 2 QRSD: 96 T: 69 QT: 385 QTc: 442 Interpretive Statements Sinus rhythm Anterior infarct, old Minimal ST depression, lateral leads Baseline wander in lead(s) V3 Electronically Signed On 01-16-2020 12:44:26 CDT by Jaren Castellon [email or web address] <ELECTRONICALLY SIGNED> By: Jaren Castellon MD, FACC 01/16/20 1244 2256 2256 Jaren Castellon MD, [facility] /EPI
--- NOTE | 2020-01-16 12:48 | EKG ---
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
--- NOTE | 2020-01-16 13:00 | 2DMMODE ---
[place] [address] 2 D/M-MODE ECHOCARDIOGRAM Name: BETTINA JACKSON Room: [address] IN .[facility].#: [id number] Admission: 01/15/20 Attend Phys: Jaren Castellon MD Discharge: Date of : 50 Date of Service: 01/16/20 1258 Report #: [id number] THIS REPORT FOR: cc: Kallie Castro MD, Molly MD Blick, David R. MD [facility] ~ APPROVED REPORT Study performed: 01/16/2020 10:37:10 EXAM: Comprehensive 2D, Doppler, and color-flow Echocardiogram Patient Location: In-Patient Room #: [facility] Status: routine BSA: 2.56 HR: 67 bpm BP: 138/56 mmHg Rhythm: NSR Other Information Study Quality: Technically Limited Technically limited study due to body habitus, poor endocardial definition. Indications CAD Echo Enhancing Agent Indication: Endocardial border delineation Agent(s) / Amount(s) Used: Optison 3 cc 2D Dimensions IVSd: 12.67 (7-11mm) LVOT Diam: 20.07 (18-24mm) LVDd: 44.44 mm PWd: 12.22 (7-11mm) Ascending Ao: 36.43 (22-36mm) LVDs: 23.46 (25-40mm) Aortic Root: 29.47 mm Volumes Left Atrial Volume (Systole) LA ESV Index: 33.00 mL/m2 Aortic Valve AoV Peak Ramiro.: 2.19 m/[place] [address] 2 D/M-MODE ECHOCARDIOGRAM Name: ANNABETTINA Miller SR Room: [address] IN [facility]#: [id number] Admission: 01/15/20 Attend Phys: Jaren Castellon MD Discharge: Date of : 50 Date of Service: 01/16/20 1258 Report #: [id number] AO Peak Gr.: 19.15 mmHg LVOT Max P.46 mmHg AO Mean Gr.: 11.68 mmHg LVOT Mean P.82 mmHg LVOT Max V: 1.27 m/s AO V2 VTI: 50.26 cm LVOT Mean V: 0.76 m/s FREDA (VTI): 1.93 cm2 LVOT V1 VTI: 30.66 cm Mitral Valve E/A Ratio: 0.92 MV Decel. Time: 261.06 ms MV E Max Ramiro.: 1.17 m/s MV PHT: 75.71 ms MVA (PHT): 2.91 cm2 TDI E/Lateral E': 13.00 E/Medial E': 19.50 Medial E' Ramiro.: 0.06 m/s Lateral E' Ramiro.: 0.09 m/s Pulmonary Valve PV Peak Ramiro.: 1.17 m/s PV Peak Gr.: 5.51 mmHg Tricuspid Valve RAP Estimate: 5.00 mmHg TR Peak Gr.: 24.38 mmHg RVSP: 29.00 mmHg PA Pressure: 29.00 mmHg Left Ventricle The left ventricle is normal size. There is normal LV segmental wall motion. Mild concentric left ventricular hypertrophy. Left ventricular systolic function is normal. The left ventricular ejection fraction is within the normal range. LVEF is 60-65%. Grade I - abnormal relaxation pattern. Right Ventricle The right ventricle is normal size. The right ventricular systolic function is normal. Atria Left atrium is mildly dilated. The right atrium size is normal. Aortic Valve Mild aortic valve sclerosis. Trace aortic regurgitation. Mild aortic stenosis[place] [address] 2 D/M-MODE ECHOCARDIOGRAM Name: BETTINA AJCKSON Room: [address] IN [facility]#: [id number] Admission: 01/15/20 Attend Phys: Jaren Castellon MD Discharge: Date of : 50 Date of Service: 01/16/20 1258 Report #: [id number] There is mitral annular calcification. There is no mitral valve regurgitation noted. No evidence of mitral valve stenosis. Tricuspid Valve Tricuspid valve is not well visualized. Trace tricuspid regurgitation. No pulmonary hypertension. Pulmonic Valve The pulmonary valve is normal in structure. Trace pulmonic regurgitation. Great Vessels The aortic root is normal in size. IVC is not well visualized. Pericardium There is no pericardial effusion. <Conclusion> LVEF is 60-65%. Mild concentric left ventricular hypertrophy. Left atrium is mildly dilated. Mild aortic stenosis. <ELECTRONICALLY SIGNED> By: Jaren Castellon MD, FACC 01/16/20 1258 1258 1258 Jaren Castellon MD, FACC /INF
--- NOTE | 2020-01-16 16:16 | NUR ---
Pt is A&O. Resides at home with . [employer]. Pt uses a cane for mobility. Pt has a cpap. Hx of HH in 2018 post knee replacement. No hx of SNF. Goal is home at sc, no needs anticipated.
--- NOTE | 2020-01-16 16:37 | NUR ---
PT UP IN ROOM WITH STEADY GAIT. NO EPISODES OF VTACH NOTED. PT DENIES CP OR SOA. PT TOLERATING PO WELL
[2020-01-17 04:27] VITALS: BP 137/62
--- NOTE | 2020-01-17 05:35 | NUR ---
PATIENT PROGRESSING TOWARDS GOALS: PATIENT DENIES PAIN AND DISCOMFORT THIS SHIFT. ANTICIPATING DISCHARGE TODAY. CALL LIGHT WITHIN REACH
[2020-01-17 08:00] VITALS: BP 127/58
--- NOTE | 2020-01-17 10:58 | EKG ---
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1950 Requested By: Jaren Castellon Order Number: [id number] Reading MD: Jaren Castellon Measurements Intervals [place] Rate: 57 P: 40 VA: 205 QRS: 9 QRSD: 102 T: 53 QT: 445 QTc: 434 Interpretive Statements Sinus rhythm Low voltage, precordial leads septal infarct, old Minimal ST depression Compared to ECG 01/16/2020 07:55:46 Ventricular premature complex(es) no longer present Myocardial infarct finding still present Electronically Signed On 01-17-2020 10:56:57 CDT by Jaren Castellon [email or web address] <ELECTRONICALLY SIGNED> By: Jaren Castellon MD, FACC 01/17/20 1056 1000 1000 Jaren Castellon MD, FACC /EPI
[2020-01-17 12:00] VITALS: BP 122/54
[2020-01-17 14:00] VITALS: BP 106/50
--- NOTE | 2020-01-17 15:15 | NUR ---
Cardiac Rehab. Educated on VT and internal defibrilator. Questions answered to patient's satisfaction.
[2020-01-17 20:00] VITALS: BP 112/48
[2020-01-18 00:26] VITALS: BP 119/59
[2020-01-18 04:25] VITALS: BP 130/75; BP 162/93
--- NOTE | 2020-01-18 04:41 | NUR ---
ASSUMED PATIENT CARE AT 1900. PATIENT ALERT AND ORIENTED TIMES FOUR. UP INDEPENDNETLY IN ROOM. NO COMPLAINTS OF PAIN OR DISCOMFORT NOTED. 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
[2020-01-18 08:00] VITALS: BP 122/61
[2020-01-18 12:00] VITALS: BP 123/58
--- NOTE | 2020-01-18 13:11 | NUR ---
Nutrition: Pt admitted with palpitations. H/o CAD, HTN, DM, PRACHI, OBE. Seen for high BMI. Wt: 328#. CHO controlled diet. BG 200s, albumin 3.2. Likely discharge home today with defibrillator. Mild nutrition risk.
[2020-01-18] MEDS ORDERED: AMIODARONE HCL400 MG PO (14:04)
[2020-01-18] MEDS ORDERED: ASA81BEC PO (14:10)
--- NOTE | 2020-01-18 14:14 | EKG ---
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1950 Requested By: Jaren Castellon Order Number: [id number] Reading MD: Michael Dave Measurements Intervals [place] Rate: 63 P: 56 DC: 192 QRS: 4 QRSD: 104 T: 54 QT: 440 QTc: 451 Interpretive Statements Sinus rhythm Anterior infarct, old Compared to ECG 01/17/2020 10:00:11 ST (T wave) deviation no longer present Myocardial infarct finding still present Electronically Signed On 01-18-2020 14:13:06 CDT by Michael Dave [email or web address] <ELECTRONICALLY SIGNED> By: Michael Dave MD, FACC 01/18/20 1413 0808 0808 Michael Dave MD, FAC /EPI
[2020-01-18 14:26] VITALS: BP 123/58
--- NOTE | 2020-01-18 15:30 | NUR ---
ASSUMED PT CARE AT 0700, PT A&O X4, VSS, UP AD HONORIO, PAPER REWINDER OPERATOR TRACING SINUS RHYTHM WITH SOME PVC'S, FULL ASSESSMENT CHARTED. PT DISCHARGED HOME AT APPROX 1515 WITH . EDUCATED ON ALL DISCHARGE INSTRUCTIONS INCLUDING MEDICATIONS AND FOLLOW UP APPOINTMENTS. IV AND PAPER REWINDER OPERATOR REMOVED, HOURLY ROUNDING COMPLETED.
--- NOTE | 2020-01-19 13:05 | NUR ---
Spoke with the patient by phone, he states he is doing well, does not have any questions or concerns. Was able to get all his medications.
--- NOTE | 2020-01-19 13:31 | D ---
[address] [address] DISCHARGE SUMMARY Name: ALAYNA JACKSONDUYENToby DELPHINE TRISTAN Room: [address] IN R.#: [id number] Admission: 01/15/20 Attend Phys: Jaren Castellon MD, F Discharge: 01/18/20 Date of : 50 Report #: [id number] THIS REPORT FOR: //name// cc: Kallie Castro MD, Molly MD ~ THIS REPORT FOR: //name// CC: Jaren Castro MD DATE OF SERVICE: 01/18/2020 DISCHARGE DIAGNOSES: 1. Nonsustained ventricular tachycardia. 2. Coronary artery disease. 3. Hypertension. 4. Hyperlipidemia. 5. Diabetes. 6. Sleep apnea. 7. Morbid obesity. CONSULTANTS: None. PROCEDURES: None. HISTORY OF PRESENT ILLNESS: The patient is a 69-year-old white male who was told to come to the Emergency Room after he was noted to have episodes of wide complex tachycardia. The patient's first stent was placed in 2004 at [facility]. He has had 11 stents since that time including stents in 2014, 2015, 2017 and again in 2019. He apparently had a recent abnormal stress test and Dr. Navarro placed another stent in his LAD at [place] in 12/20/2019. Heart catheterization at that time from the right femoral artery showed ejection fraction of 50%. There were many stents in the right coronary artery with an 80% mid right coronary artery restenosis noted. The stents in the circumflex had no restenosis. The stent in LAD had a 60% restenosis and medium sized diagonal branch had an ostial 90% stenosis. Dr. Navarro then placed a new drug-eluting stent in the LAD. The patient was continued on aspirin and Plavix. He has had no significant chest tightness since that time, although he is not very active because of his large size. He did complain of occasional flutter in his chest and was given a biochemist to wear. For the last several days, the monitor showed episodes of wide complex tachycardia at 200 beats per minute consistent with nonsustained ventricular tachycardia lasting several seconds. The patient was told to come to the Emergency Room to be admitted[place] [address] DISCHARGE SUMMARY Name: RENETTABETTINA Room: [address]#: [id number] Admission: 01/15/20 Attend Phys: Jaren Castellon MD, F Discharge: 01/18/20 Date of : 50 Report #: [id number] occasional lightheadedness and did note the palpitations. He has noted some shortness of breath. However, he has had no syncope, fever, or increasing edema. PAST MEDICAL HISTORY: Significant for cholecystectomy, knee surgery, shoulder surgery, elbow surgery, radiation therapy for prostate cancer, sleep apnea, uses CPAP. He has hypertension, diabetes, hyperlipidemia. MEDICATIONS: Include Plavix, aspirin, Lasix, Neurontin, insulin, Imdur, losartan, metformin, metoprolol, pravastatin, Desyrel, Ambien, aspirin 81 mg a day. ALLERGIES: HE HAS PREVIOUS INTOLERANCE TO LIPITOR AND EFFIENT. PHYSICAL EXAMINATION: VITAL SIGNS: Blood pressure 140/60, pulse 70. CHEST: Clear to auscultation. CARDIAC: Regular rate and rhythm. ABDOMEN: Obese. EXTREMITIES: Had trace edema. DIAGNOSTIC STUDIES: ECG; sinus rhythm, septal Q waves, nonspecific ST and T-wave change. LABORATORY WORK: Sodium 143, potassium 3.7, creatinine 1.0, glucose 86. Liver function studies were normal. Troponin 0.47. Cholesterol in December is 136, triglyceride 176, HDL 39, LDL 62. Hematocrit 36.9. His chest x-ray showed normal heart size, clear lung alvarado. HOSPITAL COURSE: The patient was felt to be having runs of nonsustained ventricular tachycardia. He was admitted to a monitor bed. After being admitted, the patient again had episodes of a wide complex tachycardia lasting several seconds, the longest being 14 beats that would convert spontaneously. He had no episodes of supraventricular tachycardia or atrial fibrillation during his hospitalization. The patient did undergo an echocardiogram during his hospitalization that showed an ejection fraction of 50% with no significant wall motion abnormalities, left ventricular hypertrophy, left atrial enlargement and only mild aortic stenosis with a peak gradient across the aortic valve of 20 mmHg. Results were discussed with the patient, was felt he had episodes of nonsustained ventricular tachycardia. It is recommended he be started on amiodarone. He was given a bolus of amiodarone 150 mg on a one time dose, he was then started on 600 mg p.o. every 12 hours. Fortunately, the runs of nonsustained ventricular tachycardia resolved and he was then only noted to have occasional PVC. Prior to discharge, he was ambulating in the halls, had no further complaints. He was seen by cardiac rehabilitation. He had no nausea or taken any amiodarone. Additional workup during his hospitalization included [address] [address] DISCHARGE SUMMARY Name: BETTINA JACKSON SR Room: [facility] IN Don#: [id number] Admission: 01/15/20 Attend Phys: Jaren Castellon MD, F Discharge: 01/18/20 Date of : 50 Report #: [id number] magnesium of 1.8, repeat potassium 3.9. His TSH 1.5, T4 of 1.0. At the time of discharge, the patient was ambulating, had no further complaints. He had sinus rhythm, only rare PVC. At the time of discharge; vital signs were 120/60, pulse 60. He is afebrile. He was discharged on his home medications that included aspirin 81 mg a day, Plavix 75 mg a day, fish oil, Lasix 40 mg a day for edema, Neurontin, insulin, Imdur 30 mg a day, losartan 25 mg a day, metformin 500 mg twice day for his diabetes. Because of bradycardia induced by the amiodarone, the metoprolol was decreased to 25 mg once a day only. He was continued on pravastatin 80 mg a day, trazodone. He was to continue his CPAP. He was discharged to return to care of Dr. Kallie Castro for routine medical care including management of his diabetes. He was scheduled to return to see Dr. Navarro on 02/07 for followup of his stent. He was discharged on amiodarone 400 mg every 12 hours for the next 2 weeks and I would then decrease the dose to 40 mg once daily. He was to contact my office if he had recurrent palpitations or syncope. He was also given appointment to see Dr. Asher Carter in the EP clinic at [facility] for consideration of a defibrillator. Since the patient had preserved left ventricular function, his insurance would not cover the cost of a LifeVest. In addition, I am not sure the patient could wear a LifeVest because of a large size. I did recommend he start an exercise program, although I would avoid any stressful activity. He is certainly to not drive out of town at this time. His prognosis is guarded due to his multiple medical problems. <ELECTRONICALLY SIGNED> By: Jaren Castellon MD, FACC 01/19/20 1331 1241 [id number] Castellon MD, FACC /nt
== END 2020-01-18 15:15 | disposition home or self-care (01) | DRG 309 ==
LOC: M.ERS 14:53 → M.2W 15:18 → M.TBA-ER 15:18 → M.2W 18:33
PROVIDERS: Emergency Medicine; ADMIT Internal Medicine Cardiovascular Disease
PROC: 5A09357 Assistance with Respiratory Ventilation, Less than 24 Consecutive Hours, Continuous Positive Airway Pressure (ICD-10-PCS; principal; 2020-01-15)
DX: I47.2 Ventricular tachycardia (principal); Z68.43 Body mass index [BMI] 50.0-59.9, adult; I25.10 Atherosclerotic heart disease of native coronary artery without angina pectoris; E66.01 Morbid (severe) obesity due to excess calories; E11.9 Type 2 diabetes mellitus without complications; I10 Essential (primary) hypertension; E78.5 Hyperlipidemia, unspecified; I87.8 Other specified disorders of veins; L40.9 Psoriasis, unspecified; F43.10 Post-traumatic stress disorder, unspecified; G47.33 Obstructive sleep apnea (adult) (pediatric); Z95.5 Presence of coronary angioplasty implant and graft; Z79.84 Long term (current) use of oral hypoglycemic drugs; Z79.891 Long term (current) use of opiate analgesic; Z79.899 Other long term (current) drug therapy; Z88.8 Allergy status to other drugs, medicaments and biological substances; Z90.49 Acquired absence of other specified parts of digestive tract; Z85.46 Personal history of malignant neoplasm of prostate